=== PATIENT | female | born 1980 | race Two or more races ===

== ENCOUNTER 2017-11-01 13:51 | Emergency (ER) | payer MEDICAID ==
[~2017-11-01] VITALS: Ht 167.6 cm; Wt 74.4 kg
[2017-11-01 15:12] VITALS: BP 101/60
[2017-11-01] MEDS ORDERED: cefTRIAXone SOD 1,000 MG VL IM ONE (15:30)
== END 2017-11-01 15:55 | disposition home or self-care (01) ==
LOC: ER 13:51
DX: N39.0 Urinary tract infection, site not specified (principal)
CPT/HCPCS: 99283; J0696

== ENCOUNTER 2017-11-17 07:20 | Emergency (ER) | payer MEDICAID ==
[~2017-11-17] VITALS: Ht 167.6 cm; Wt 72.6 kg
[2017-11-17 09:45] LABS: Urine Bacteria FEW /hpf (None Seen); Urine Blood Negative /uL (Negative); Urine Specific Gravity 1.012 (1.001-1.035); Urine WBC 42 /hpf (0 - 5)
[2017-11-17] MEDS ORDERED: KETOROLAC TROMETH 60MG/2ML VIAL IM ONE (10:00)
[2017-11-17] MEDS ORDERED: cefTRIAXone 1GM/10ml IVPUSH 10 ML IV ONE (10:00)
[2017-11-17] MEDS ORDERED: cefTRIAXone SOD 1,000 MG VL IM ONE (10:00)
[2017-11-17] MEDS ORDERED: KETOROLAC TROMETH 30 MG/ML 1ML VIAL IV ONE (10:15)
[2017-11-17] MEDS ORDERED: SODIUM CHLORIDE 0.9% 1,000 ML IV ONE (10:30)
[2017-11-17 10:35] LABS: Basophils # (auto) 0 uL; Basophils % (auto) 0.3 % (0.0-2.0); Eosinophils # (auto) 0.1 uL; Eosinophils % (auto) 1.4 % (0.0-7.0); Hematocrit 40.2 % (36.0-46.0); Hemoglobin 13.2 g/dL (12.2-16.2); Lymphocytes # (auto) 1.7 uL; Lymphocytes % (auto) 19.5 % (10.0-50.0); Mean Corpuscular Hemoglobin 28.4 pg (28.0-32.0); Mean Corpuscular Hgb Conc. 32.7 g/dL (32.0-36.0); Mean Corpuscular Volume 86.6 fL (80.0-100.0); Monocytes # (auto) 0.7 uL; Monocytes % (auto) 7.8 % (0.0-12.0); Neutrophils # (auto) 6.1 uL; Platelet Count (auto) 241 10^3/uL (140-450); Red Blood Cells 4.64 10^6/uL (4.0-5.20); Red Cell Distribution Width 14.6 % (11.8-14.3); White Blood Cell 8.6 10^3/uL (4.4-10.8)
[2017-11-17 10:53] LABS: Albumin 3.5 g/dL (3.4-5.0); BUN/Creatinine Ratio 22.7; Bilirubin, Total 0.5 mg/dL (0.2-1.0); Calcium 8.3 mg/dL (8.5-10.1); Potassium 3.8 mmol/L (3.5-5.1); Total Protein 7.4 g/dL (6.4-8.2)
[2017-11-17 11:40] VITALS: BP 105/62
== END 2017-11-17 12:01 | disposition home or self-care (01) ==
LOC: ER 07:20
DX: N20.1 Calculus of ureter (principal); N39.0 Urinary tract infection, site not specified
CPT/HCPCS: 36415; 74176; 80053; 81001; 81025; 83690; 85025; 87086; 96361; 96374; 96375; 99285; J1885; J7030

== ENCOUNTER → 2019-12-13 | Emergency (ER) | payer MEDICAID ==
[~2019-12-13] VITALS: Ht 167.6 cm; Wt 86.2 kg
[~2019-12-13] MED LIST: IOHEXOL 300 MG/ML 100ML BOTTLE IJ ONE; MORPHINE SULFATE 4 MG/ML SYR/VIAL IV ONE; PROMETHAZINE HCL 25 MG/ML 1ML IV PRN; SODIUM CHLORIDE 0.9% 1,000 ML IV ONE; TETANUS-DIPTH-ACEL PERTUSSIS 0.5ML SYR Tdap IM ONE
[2019-12-13 17:19] LABS: Basophils # (auto) 0 10 ^3/uL (0-0.2); Basophils % (auto) 0.3 % (0.0-2.0); Eosinophils # (auto) 0.2 10 ^3/uL (0-0.8); Eosinophils % (auto) 1.4 % (0.0-7.0); Hematocrit 42.5 % (36.0-46.0); Hemoglobin 14.2 g/dL (12.2-16.2); Lymphocytes # (auto) 1.6 10 ^3/uL (0.4-5.4); Mean Corpuscular Hemoglobin 29.3 pg (28.0-32.0); Mean Corpuscular Hgb Conc. 33.5 g/dL (32.0-36.0); Mean Corpuscular Volume 87.5 fL (80.0-100.0); Monocytes # (auto) 1.1 10 ^3/uL (0-1.3); Monocytes % (auto) 7.3 % (0.0-12.0); Neutrophils # (auto) 11.9 10 ^3/uL (1.6-8.6); Nucleated Red Blood Cells % 0.1 %; Platelet Count (auto) 300 10^3/uL (140-450); Red Blood Cells 4.85 10^6/uL (4.0-5.20); Red Cell Distribution Width 14.5 % (11.8-14.3); White Blood Cell 14.8 10^3/uL (4.4-10.8)
[2019-12-13 17:35] LABS: Albumin 3.9 g/dL (3.4-5.0); Calcium 8.7 mg/dL (8.5-10.1); Potassium 3.5 mmol/L (3.5-5.1)
[2019-12-13 17:38] LABS: BUN/Creatinine Ratio 18.4; Bilirubin, Total 0.6 mg/dL (0.2-1.0); Total Protein 8.3 g/dL (6.4-8.2)
[2019-12-13 21:16] VITALS: BP 117/75
== END | disposition home or self-care (01) ==
LOC: EDUNIT# 16:18 → EDBD 16:35 → ER 16:35
DX: S39.91XA Unspecified injury of abdomen, initial encounter (principal); R74.8 Abnormal levels of other serum enzymes; Z90.49 Acquired absence of other specified parts of digestive tract; Z98.51 Tubal ligation status; V43.52XA Car driver injured in collision with other type car in traffic accident, initial encounter; Y93.89 Activity, other specified; Y92.89 Other specified places as the place of occurrence of the external cause; Y99.8 Other external cause status
CPT/HCPCS: 36415; 74177; 80053; 83690; 83735; 84702; 85025; 99285; Q9967